=== PATIENT | female | born 1995 | race Caucasian/White ===

== ENCOUNTER 2023-10-24 12:37 | Outpatient (CLI) | payer OTHER ==
--- NOTE | 2023-10-24 17:34 | Ultrasound Report ---
PROCEDURE: Chest INDICATIONS: LUMP ON CLAVICLE TECHNIQUE: Real-time scanning was performed at the level of the right clavicle. COMPARISON: None. FINDINGS: No abnormal mass, fluid collection or architectural distortion at the area of palpable concern at the right clavicle. IMPRESSION: Unremarkable. Reviewed by: Radha Crawford MD on 10/24/2023 5:32 PM PDT Approved by: Radha Crawford MD on 10/24/2023 5:32 PM PDT Station ID: [id number]
== END 2023-10-24 12:38 | disposition home or self-care (01) ==
LOC: DI 12:37
PROVIDERS: ATTEND Nurse Practitioner Family
DX: R22.1 Localized swelling, mass and lump, neck (principal)